=== PATIENT | male | born 1950 | race Caucasian/White ===

== ENCOUNTER 2020-06-12 13:44 | Emergency (ER) | payer OTHER ==
[~2020-06-12 13:44] MED LIST: BYSTOLIC5 MG PO; CENTRUM SILVER1 EAC5 PO; COUMADIN2.5 MG PO; FLECAINIDE ACET50 MG PO; HEPATITIS A VACCINE SC; LEXAPRO20 MG PO; LISINOPRIL 5 MG5 MG PO; LOPRESSOR25 MG PO; NORCO 5-325 TA1 EACH PO; PRAVACHOL20 MG PO; PROTONIX 40MG T40 MG PO; SODIUM BICARBO650 MG PO; VITAMIN D250000 UNIT PO; ZYPREXA 5MG TABL5 MG PO
[2020-06-12] MEDS ORDERED: CYCLOBENZAPRINE10 MG PO (17:02)
== END 2020-06-12 17:09 | disposition home or self-care (01) ==
LOC: FER 13:44
DX: M51.36 Other intervertebral disc degeneration, lumbar region (principal); I48.91 Unspecified atrial fibrillation; N18.9 Chronic kidney disease, unspecified; Z79.01 Long term (current) use of anticoagulants; Z79.899 Other long term (current) drug therapy
CPT/HCPCS: 71250; 72131